=== PATIENT | female | born 1985 | race African-American/Black ===

== ENCOUNTER 2017-04-22 11:26 | Emergency (ER) | payer SELFPAY ==
[~2017-04-22 11:26] MED LIST: HUMALOG SC; LANTUS SC; PROAIR HFA INH
== END 2017-04-22 12:10 | disposition home or self-care (01) ==
LOC: ER 11:26
DX: K02.9 Dental caries, unspecified (principal); F17.200 Nicotine dependence, unspecified, uncomplicated; E10.9 Type 1 diabetes mellitus without complications; Z79.4 Long term (current) use of insulin; Z79.899 Other long term (current) drug therapy
CPT/HCPCS: 99282